=== PATIENT | male | born 1990 | race African-American/Black ===

== ENCOUNTER 2020-12-23 15:38 | Emergency (ER) | payer BC, SELFPAY ==
[2020-12-23 16:01] VITALS: BP 130/70; PULSE 83; RESP 17; TEMP 36.6; O2SAT 100
--- NOTE | 2020-12-23 17:36 | ED.SKABFB ---
HPI - Skin/Abscess/Foreign Bdy General Chief complaint: Wound/Laceration Stated complaint: Abscess Time Seen by Provider: 12/23/20 17:15 History of Present Illness HPI narrative: Multiple scrotal cysts appeared over the past several weeks. They are mildly painful. No fever, dysuria, hematuria. He has had the same in the past and had them drained by urology. He was told that they would likely return. Related Data Allergies Allergy/AdvReac Type Severity Reaction Status Date / Time No Known Allergies Allergy Unverified 12/23/20 16:40 Review of Systems Review of Systems: All systems reviewed & are unremarkable except as noted in HPI and below Constitutional: Constitutional: Denies chills, Denies fever(s) and Denies weakness Eyes: Eyes: Reports no additional eye complaints Cardiovascular: Cardiovascular: Denies chest pain Respiratory: Respiratory: Denies dyspnea Gastrointestinal: Gastrointestinal: Denies abdominal pain, Denies nausea and Denies vomiting Genitourinary: Genitourinary: Denies hematuria, Denies dysuria and Denies penile discharge Musculoskeletal: Musculoskeletal: Denies back pain Neurologic: Reports system reviewed and no additional complaints, except as documented PMFSH Past Medical History Medical History (Updated 12/23/20 @ 20:00 by Aung Rocha MD) Sebaceous cyst of scrotum Social History Social History Gender identity (if verbalized by the patient): Male Exam Const: General: healthy appearing, no acute distress and alert Nutritional Appearance: well nourished Orientation/consciousness: patient oriented x3 HENMT: Head: normal to inspection Neck: Neck: normal visual inspection Resp: Effort & Inspection: normal respiratory effort Auscultation: clear to auscultation bilaterally, no rales, no rhonchi and no wheezes Cardio: Jugular venous distension: no JVD Rate: regular rate Rhythm: regular rhythm Heart sounds: no murmurs GI: Inspection: non-distended GI Palp: Yes Soft to palpation and No Tenderness to palpation present (GI) : Other: multiple cystic lesions to scrotum. Mild tenderness. No erythema or induration. Skin: General skin exam: normal color Neuro: General: patient oriented x3 and moves all extremities Speech: normal speech Extrem: General: normal to inspection Psych: Appearance: well kempt Affect: normal affect Course Vital Signs Vital signs: Vital Signs Temperature 36.6 C 12/23/20 16:01 Pulse Rate 83 12/23/20 16:01 Respiratory Rate 17 12/23/20 16:01 Blood Pressure 130/70 12/23/20 16:01 Pulse Oximetry 100 12/23/20 16:01 Temperature 36.6 C 12/23/20 16:01 Pulse Rate 83 12/23/20 16:01 Respiratory Rate 17 12/23/20 16:01 Blood Pressure 130/70 12/23/20 16:01 Pulse Oximetry 100 12/23/20 16:01 Procedures Abscess I/D scrotum: Local Anesthetic: lidocaine 1% and with epi Amount of anesthesia used (mL): 4 Technique: incised with #15 blade Amount of fluid expressed (mL): 6 Irrigation: No Packing used?: none I&D Results: Other Abcess I&D Additional Comments: 4 separate scrotal cysts were excised completely and sutured using 5-0 vicryl MDM - Skin/Abscess/Foreign Bdy MDM Narrative Medical decision making narrative: He has nuerous sebaceous cysts of the scrotum. I drained the largest and most uncomfortable. He will need urology follow-up to take care of the rest. Medical Records Attestation: I reviewed the patient's medical records. Discharge Plan Discharge Clinical Impression: Sebaceous cyst of scrotum Patient Disposition: Home, Self-Care Condition: Stable Instructions: Antibiotic Form, Dermal Cyst Excision (DC) Prescriptions: New cephalexin 500 mg capsule 500 mg PO Q12H 3 Days Qty: 6 RF: 0 Follow-up/Referrals: Santos Valente MD [Physician] - PHYSICIAN,SCOREKEEPER [Primary Care Provider] -
[2020-12-23] MEDS: CEPHALEXIN 500 MG CAPSULE PO (19:52)
[2020-12-23 19:57] VITALS: BP 115/70; PULSE 80; RESP 16; O2SAT 100
== END 2020-12-23 19:58 | disposition home or self-care (01) ==
PROVIDERS: Emergency Provider Emergency Medicine
DX: L72.3 Sebaceous cyst (principal)
CPT/HCPCS: 54700; 99283; A9270